=== PATIENT | male | born 1935 | race Caucasian/White ===

== ENCOUNTER 2018-11-12 13:07 | Emergency (ER) | payer MEDICARE, BC ==
[~2018-11-12] VITALS: Ht 180.3 cm; Wt 83.2 kg
[~2018-11-12 13:07] MED LIST: BENZ100A PO; LEVO750 PO; Mucinex600 MG PO; SIMV10 PO
[2018-11-12] MEDS ORDERED: Vibramycin100 MG PO (13:29)
[2018-11-12] MEDS ORDERED: Mupirocin22 GM TOP (13:29)
== END 2018-11-12 13:50 | disposition home or self-care (01) ==
LOC: ER 13:07
DX: L02.411 Cutaneous abscess of right axilla (principal); Z86.73 Personal history of transient ischemic attack (TIA), and cerebral infarction without residual deficits; Z87.891 Personal history of nicotine dependence; Z88.0 Allergy status to penicillin; Z88.5 Allergy status to narcotic agent; Z79.899 Other long term (current) drug therapy
CPT/HCPCS: 99283

== ENCOUNTER 2024-04-09 10:18 | Inpatient (IN) | payer MEDICARE, BC ==
[~2024-04-09] VITALS: Ht 175.3 cm; Wt 85.2 kg
[~2024-04-09 10:18] MED LIST changes: +ASPI325 PO; +IBUP400 PO; +Mupirocin22 GM TOP; +Vibramycin100 MG PO
[2024-04-09 10:39] LABS: BASOPHILS ABSOLUTE AUTO 0.06 K/mm3 (0.00-0.23); BASOPHILS PERCENT AUTO 0 % (0-2); EOSINOPHILS ABSOLUTE AUTO 0.04 K/mm3 (0.00-0.68); EOSINOPHILS PERCENT AUTO 0 % (0-6); Hematocrit 42.4 % (37.0-53.0); Hemoglobin 14.3 g/dL (13.5-17.5); IMMATURE GRAN ABSOLUTE AUTO 0.07 K/mm3 (0.00-0.10); IMMATURE GRAN PERCENT AUTO 0 % (0-1); LYMPHOCYTES ABSOLUTE AUTO 0.64 K/mm3 (0.84-5.20); LYMPHOCYTES PERCENT AUTO 4 % (21-46); MONOCYTES ABSOLUTE AUTO 0.47 K/mm3 (0.16-1.47); MONOCYTES PERCENT AUTO 3 % (4-13); Mean Corpuscular HGB 32.6 pg (26.0-34.0); Mean Corpuscular HGB Conc 33.7 g/dL (31.5-36.5); Mean Corpuscular Volume 97 fL (80-100); Mean Platelet Volume 8.5 fL (9.1-12.4); NEUTROPHILS ABSOLUTE AUTO 15.33 K/mm3 (1.96-9.15); NEUTROPHILS PERCENT AUTO 92 % (41-73); Platelet Count 246 K/mm3 (150-400); RDW Coefficient Variation 13.8 % (11.7-14.2); RDW Standard Deviation 49.3 fL (35.1-46.3); Red Blood Cell Count 4.39 M/mm3 (4.30-5.90); White Blood Cell Count 16.61 K/mm3 (4.00-11.30)
[2024-04-09 10:50] LABS: Source, Urine Straight Cath
[2024-04-09] MEDS ORDERED: Acetaminophen 650 MG Supp PR ONE (10:50)
[2024-04-09 10:53] LABS: Appearance, Urine Clear (Clear); Bilirubin, Urine Neg (Neg); Blood, Urine 1+ (Neg); Color, Urine Yellow (P-Yellow); Glucose Qualitative, Urine Neg (Neg); Ketones, Urine Neg (Neg); Leukocyte Esterase, Urine Neg (Neg); Nitrite, Urine Neg (Neg); Protein, Urine 2+ (Neg); Urobilinogen, Urine 1+ (Normal)
[2024-04-09 10:59] LABS: Bacteria Rare /hpf; Renal Epithelial Rare /hpf (0-Rare); Squamous Epithelial Cells Rare /hpf (Few); White Blood Cells, Urine 0-2 /hpf (0-5)
[2024-04-09] MEDS ORDERED: Vancomycin HCL 1,750 MG in NS 500 ML IV ONE (11:00)
[2024-04-09 11:04] LABS: Alanine Aminotransfer (ALT/SGP 15 U/L (12-78); Albumin/Globulin Ratio 0.6 (0.8-1.8); Alk Phos 102 U/L (50-136); Anion Gap 10 mmol/L (3-11); Aspartate Aminotrans (AST/SGOT 27 U/L (12-37); Bilirubin, Direct 0.3 mg/dL (0.0-0.3); Bilirubin, Indirect 0.7 mg/dL (0.1-0.7); Blood Urea Nitrogen 13 mg/dL (8-24); Bun/Creatinine Ratio 15.6 (12.0-20.0); CO2, Blood 28 mmol/L (21-32); Calcium, Blood 9.1 mg/dL (8.5-10.1); Chloride, Blood 100 mmol/L (98-108); Creatinine, Blood 0.83 mg/dL (0.60-1.20); Ethanol (Alcohol), Blood, Med <3 mg/dL; Globulin, Blood 4.8 g/dL (2.2-4.0); Glomerular Filtration Rate 84 (60-); Glucose, Blood 132 mg/dL (70-99); Potassium, Blood 4.8 mmol/L (3.5-5.5); Sodium, Blood 133 mmol/L (136-145); Total Protein, Blood 7.8 g/dL (6.4-8.2)
[2024-04-09] MEDS ORDERED: Lactated Ringer's 1,000 ML IV ONE ×2 (11:05→13:45)
[2024-04-09 11:07] LABS: International Normalized Ratio 1.02; Magnesium, Blood 1.8 mg/dL (1.6-2.4); Phosphorus, Blood 2.7 mg/dL (2.5-4.9); Prothrombin Time Results 10.9 Sec (9.7-11.5)
[2024-04-09 11:08] LABS: U Amphetamine Screen Not Detected; U Barbituate Screen Not Detected; U Benzodiazapine Screen Not Detected; U Buprenorphine Screen Not Detected; U Cannabinoids Screen Not Detected; U Cocaine Screen Not Detected; U Methadone Screen Not Detected; U Methamphetamine Screen Not Detected; U Opiates Screen Not Detected; U Oxycodone Screen Not Detected; U Phencyclidine Screen Not Detected
[2024-04-09 11:18] LABS: CORONAVIRUS COVID-19 AG Negative (NEGATIVE); INFLUENZA A AG Negative (NEGATIVE); INFLUENZA B AG Negative (NEGATIVE)
[2024-04-09] MEDS ORDERED: Thiamine HCl 100 MG in NS 50 ML IV ONE (13:45)
[2024-04-09] MEDS ORDERED: Metoprolol Tartrate 1 MG/ML 5 ML VIAL IV ONE (13:45)
[2024-04-09] MEDS ORDERED: Polyethylene Glycol 3350 17 gm PO PRN (14:25)
[2024-04-09] MEDS ORDERED: FLU VACC TS2024-25(6MOS UP)/PF 45 MCG/0.5 ML SYRINGE IM SCH (14:30)
[2024-04-09] MEDS ORDERED: NS 1,000 ML IV SCH (14:30)
[2024-04-09] MEDS ORDERED: CeFAZolin Sodium 2,000 MG in NS 100 ML IV SCH (15:00)
[2024-04-09] MEDS ORDERED: Heparin Sodium 5000 Units/ML 1ML MDV IV ONE (15:00)
[2024-04-09] MEDS ORDERED: Heparin Sodium,Porcine/0.5 NS 500 ML IV SCH (15:00)
[2024-04-09] MEDS ORDERED: Aspirin 81 MG Chew PO SCH (15:00)
[2024-04-09 16:42] VITALS: BP 121/91
--- NOTE | 2024-04-09 17:21 | NUR ---
PCU ADMIT / END OF SHIFT PT BROUGHT TO PCU-03 BY KIRILL FROM ER @ APPROX 1630. PT OPENS EYES TO VERBAL STIMULI W/ TOUCH. PT L EYE NOTEABLY SWOLLEN W/ YELLOW DISCHARGE. PT W/ VARIOUS SCATTERED BRUISES. PT INCONTINENT W/ SATURATED ATTENDS. SCROTUM & PENIS RED & SWOLLEN. PT ALSO INCONTINENT OF STOOL W/ SMALL PASTY BM STICKING OUT OF RECTUM. ROSIE CARE PERFORMED. PRESSURE SORE NOTED TO BUTTOCKS. WOUND PHOTOS TAKEN & PLACED IN CHART. BLE W/ SCABS. RLE MORE SWOLLEN & RED THAN LLE. WOUND PHOTOS PRINTED & PLACED IN CHART. PT ABLE TO STATE OWN NAME & . PT UNABLE TO ANSWER ANY OTHER ASSESSMENT Qs. VSS. SPO2 > 92% ON 4L NC VIA MOUTH D/T PT MOUTH BREATHING. MONITOR SHOWING ST, HR 110s. TEMP ELEVATED @ 100.1. PT SLEEPING AFTER CARE PROVIDED. HEPARIN GTT INFUSING PER ORDERS UPON ARRIVAL TO UNIT. PHARMACY NOTIFIED OF HEPARIN BOLUS NOT GIVEN. PHARMACY INSTRUCTING TO GIVE HEPARIN BOLUS. HEPARIN BOLUS GIVEN PER ORDERS. NS GTT NOW INFUSING PER ORDERS. HOLDING PO MEDICATIONS AT THIS TIME D/T PT INABILITY TO REMAIN AWAKE & FOLLOW INSTRUCTIONS. PT ALSO NPO AWAITING CARDIOLOGY CONSULT. NO FAMILY AT BEDSIDE. BED ALARM ON.
[2024-04-09] MEDS ORDERED: Metoprolol Tartrate 25 MG Tab PO SCH (18:00)
--- NOTE | 2024-04-09 18:10 | NUR ---
UPDATE MD MANRIQUE NOTIFIED OF CRITICAL TROPONIN. PT NPO AWAITING CARDIOLOGY CONSULT. MD MANRIQUE ALSO NOTIFIED OF PRESSURE SORE TO BUTTOCKS. NO NEW ORDERS.
[2024-04-09] MEDS ORDERED: Aspirin 300 MG Supp PR SCH (20:00)
[2024-04-09 20:54] VITALS: BP 117/83
[2024-04-09] MEDS ORDERED: Atorvastatin 40 MG Tab PO SCH (21:00)
[2024-04-09] MEDS ORDERED: Lactobacil 2-S.Thermo-Bifido 1 1 Cap PO SCH (21:00)
[2024-04-09 22:28] LABS: Adenovirus Not Detected (NOT DETECT); Bordetella pertussis Not Detected (NOT DETECT); Chlamydophila pneumoniae Not Detected (NOT DETECT); Coronavirus 229E Not Detected (NOT DETECT); Coronavirus HKU1 Not Detected (NOT DETECT); Coronavirus NL63 Not Detected (NOT DETECT); Coronavirus OC43 Not Detected (NOT DETECT); Human Metapneumovirus Not Detected (NOT DETECT); Human Rhinovirus/Enterovirus Not Detected (NOT DETECT); Influenza A/2009-H1 Not Detected (NOT DETECT); Influenza A/H1 Not Detected (NOT DETECT); Influenza A/H3 Not Detected (NOT DETECT); Influenza B Not Detected (NOT DETECT); Mycoplasma pneumoniae Not Detected (NOT DETECT); Parainfluenza Virus 1 Not Detected (NOT DETECT); Parainfluenza Virus 2 Not Detected (NOT DETECT); Parainfluenza Virus 3 Not Detected (NOT DETECT); Parainfluenza Virus 4 Not Detected (NOT DETECT); Respiratory Syncytial Virus Not Detected (NOT DETECT); SARS-Cov-2 (COVID-19), BioFire Not Detected (NOT DETECT)
[2024-04-09 22:29] LABS: Anti-Xa UFH, PHA Monitoring 0.41 IU/mL
[2024-04-10] VITALS (8 sets, daily range): BP systolic 97–145; BP diastolic 57–77
[2024-04-10] MEDS ORDERED: Metoprolol Tartrate 1 MG/ML 5 ML VIAL IV SCH
[2024-04-10] MEDS ORDERED: Dose Adjust by Pharmacy XX STA ×3 (00:12→21:04)
[2024-04-10 04:16] LABS: Hematocrit 37.5 % (37.0-53.0); Hemoglobin 12.5 g/dL (13.5-17.5); Mean Corpuscular HGB 32.1 pg (26.0-34.0); Mean Corpuscular HGB Conc 33.3 g/dL (31.5-36.5); Mean Corpuscular Volume 96 fL (80-100); Mean Platelet Volume 8.7 fL (9.1-12.4); Platelet Count 194 K/mm3 (150-400); RDW Coefficient Variation 14.3 % (11.7-14.2); White Blood Cell Count 26.38 K/mm3 (4.00-11.30)
[2024-04-10 04:36] LABS: BAND PERCENT MAN 14 % (0-8); BASOPHILS ABSOLUTE MAN 0.26 K/mm3 (0.00-0.23); BASOPHILS PERCENT MAN 1 % (0-2); EOSINOPHILS PERCENT MAN 0 % (0-6); LYMPHOCYTES ABSOLUTE MAN 0.79 K/mm3 (0.84-5.20); LYMPHOCYTES PERCENT MAN 3 % (21-46); MONOCYTES ABSOLUTE MAN 0.79 K/mm3 (0.16-1.47); MONOCYTES PERCENT MAN 3 % (4-13); NEUTROPHILS ABSOLUTE MAN 24.53 K/mm3 (1.96-9.15); SEG NEUTROPHILS PERCENT MAN 79 % (41-73); TOTAL CELLS COUNTED 100
[2024-04-10 04:38] LABS: Alanine Aminotransfer (ALT/SGP 12 U/L (12-78); Albumin, Blood 2.3 g/dL (3.4-5.0); Albumin/Globulin Ratio 0.6 (0.8-1.8); Alk Phos 75 U/L (50-136); Anion Gap 10 mmol/L (3-11); Aspartate Aminotrans (AST/SGOT 45 U/L (12-37); Bilirubin, Total 0.6 mg/dL (0.1-1.0); Blood Urea Nitrogen 17 mg/dL (8-24); Bun/Creatinine Ratio 19.7 (12.0-20.0); CHOL/HDL RATIO 3.1; CO2, Blood 25 mmol/L (21-32); Calcium, Blood 8.3 mg/dL (8.5-10.1); Chloride, Blood 103 mmol/L (98-108); Cholesterol 105 mg/dL (50-200); Creatinine, Blood 0.86 mg/dL (0.60-1.20); Globulin, Blood 4.1 g/dL (2.2-4.0); Glomerular Filtration Rate 83 (60-); Glucose, Blood 102 mg/dL (70-99); HDL Cholesterol 34 mg/dL (>39); LDL/HDL RATIO 1.7; Low Density Lipoprotein Chol 58 mg/dL (0-110); Potassium, Blood 4.3 mmol/L (3.5-5.5); Sodium, Blood 134 mmol/L (136-145); Total Protein, Blood 6.4 g/dL (6.4-8.2); Triglycerides 67 mg/dL (30-160); Very Low Density Lipoprot Chol 13 mg/dL (6-32)
--- NOTE | 2024-04-10 06:28 | NUR ---
SHIFT SUMMARY A/Ox1-2 AND COOPERATIVE WITH CARE. FREQUENTLY CONFUSED AND VERY APACHE. ABLE TO BE REORIENTED AND ABLE TO MAKE HIS NEEDS KNOWN. CARDIAC, REMAINS IN SR 70-90'S WITH NO C/O CP, PRESSURE OR DIZZINESS. TRENDED TROPONINS DURING THE NIGHT, SBP HAS REMAINED STABLE. RESPIRATORY, MAINTAINS SPO2 >90% ON 5-7L HFNC WITH NO C/O SOB OR DYSPNEA. GI/, INCONTINENT OF BOTH BOWEL WELL URINE. ATTENDS IN PLACED, CHANGED PRN TO KEEP C/D/I. PW IN PLACED DRAINING ENEDELIA COLORED TO URINE. MEPILEX ON COCCYX CHANGED PRN TO KEEP C/D/I WELL. CRITICAL RECEIVED SHOWING BC GROWING GRAM POSTIVE COCCI IN CHAINS. NS CONINUES TO INFUSE PER EMAR. STEP SON FROM [place] ([facility]) REPORTS HE IS PRIMARY POINT OF CONTACT . NO NEW ORDERS AT THIS TIME, WILL REPORT TO ONCOMING RN. BARBARA, SHO OF THIS NOTE.
[2024-04-10] MEDS ORDERED: Arginine/Glutamine/Calcium Hmb 1 Packet PO SCH (09:00)
[2024-04-10] MEDS ORDERED: Vancomycin HCL 1,500 MG in NS 250 ML IV SCH (12:00)
[2024-04-10] MEDS ORDERED: Erythromycin 0.5% Opth Oint 3.5 gm LEFTEYE SCH (13:30)
--- NOTE | 2024-04-10 14:36 | NUR ---
ASSUMPTION OF CARE PT ALERT, OREINTED TO NAME/, AND ABLE TO NAME [id number] AT BEDSIDE, PT UNSURE WHERE HE IS AND WHAT BROUGHT HIM IN. WHEN ASKED THE YEAR HE ORIGINALLY SAID HE DID NOT KNOW, WHEN ASKED A FEW HOURS LATER PT ABLE TO STATE THE YEAR. HR IN THE 80'S-90'S, DENIES CP/PRESSURE, NUMB/TINGLING, SBP IN THE 90'S-110'S, DENIES DIZZY/LIGHTHEADED. O2 RANGING FROM 88-94%, PT OCASIONALLY DESATS TO THE 70'S-80'S. PT WAS ON HIGH FLOW NC THIS AM AT 9L, PT FELL ASLEEP AND DESATED, SWITCHED TO OXYMIZER AT10L WHILE SLEEPING AND O2 BACK TO THE 90'S. PT WITH PUREWICK IN PLACE, ENEDELIA URINE DRAINING. WHEN ASKED ABOUT PAIN HE DENIED ANY, PUT REPORTED PAIN IN THE LEFT LEG WHILE LIFTING IT. HE HAS REDNESS AND WARM TO TOUCH OF THE BLE. REDNESS WORSE IN THE RIGHT LEG. PT ALSO WITH REDNESS AND IRRITATION TO THE LEFT EYE, OINTMENT ORDERED. PT DENIES ANY QUESTIONS AT THIS TIME. WILL MONITOR PT.
--- NOTE | 2024-04-10 18:13 | NUR ---
SHIFT SUMMARY PT ALERT, ORIENTED TO NAME/ AND YEAR. CALM COOPERATIVE TO CARE. HR IN THE 90'S, SINUS RHYTHM, DENIES CP/PRESSURE, NUMB/TINGLING, SBP IN THE 90'S-110'S. O2 >90% ON 5-7L VIA HIGH FLOW NC, PT IS A MOUTH BREATHER WHILE ASLEEP AND DOES BETTER WITH OXYMIZER WHILE SLEEPING. L/S COARSE T/O. PUREWICK IN PLACE, ENEDELIA URINE PRESENT. HE HAS REDNESS TO THE BLE, WARM TO TOUCH, RIGHT WORSE THAN LEFT. BEDSIDE SWALLOW EVAL DONE WITH PT THIS AM, PT TOLERATED PO MEDS WITH APPLESAUCE. ST CAME TO BEDSIDE TO EVALUATE PT. PT ADVANCED TO MINCED AND MOIST DIET. PT TO TAKE PILLS/EAT SITTING UPRIGHT AT 90 DEGREES. CARDIOLOGY TO BEDSIDE TO DISCUSS PLAN OF CARE, MEDICALLY MANAGING PT. PT TO CONTINUE IV ABX. HE DENIES ANY QUESTIONS OR CONCERNS AT THIS TIME WILL MONITOR PT AND REPORT TO FRUIT LOADER RN.
[2024-04-11 03:18] LABS: BASOPHILS ABSOLUTE AUTO 0.07 K/mm3 (0.00-0.23); BASOPHILS PERCENT AUTO 1 % (0-2); EOSINOPHILS ABSOLUTE AUTO 0.17 K/mm3 (0.00-0.68); EOSINOPHILS PERCENT AUTO 1 % (0-6); Hematocrit 35.2 % (37.0-53.0); Hemoglobin 11.8 g/dL (13.5-17.5); IMMATURE GRAN ABSOLUTE AUTO 0.06 K/mm3 (0.00-0.10); IMMATURE GRAN PERCENT AUTO 0 % (0-1); LYMPHOCYTES ABSOLUTE AUTO 0.91 K/mm3 (0.84-5.20); LYMPHOCYTES PERCENT AUTO 7 % (21-46); MONOCYTES ABSOLUTE AUTO 0.98 K/mm3 (0.16-1.47); MONOCYTES PERCENT AUTO 7 % (4-13); Mean Corpuscular HGB 32.4 pg (26.0-34.0); Mean Corpuscular HGB Conc 33.5 g/dL (31.5-36.5); Mean Corpuscular Volume 97 fL (80-100); Mean Platelet Volume 8.9 fL (9.1-12.4); NEUTROPHILS ABSOLUTE AUTO 11.45 K/mm3 (1.96-9.15); NEUTROPHILS PERCENT AUTO 84 % (41-73); Platelet Count 180 K/mm3 (150-400); RDW Coefficient Variation 14.4 % (11.7-14.2); RDW Standard Deviation 51.4 fL (35.1-46.3); Red Blood Cell Count 3.64 M/mm3 (4.30-5.90); White Blood Cell Count 13.64 K/mm3 (4.00-11.30)
[2024-04-11 04:17] VITALS: BP 110/68
--- NOTE | 2024-04-11 04:29 | NUR ---
SHIFT SUMMARY PATIENT HAD NO ACUTE CHANGES. AXOX 2 AND BEDREST. ON 6L O2 HIGH FLOW OR OXYMIZER MASK AT NIGHT. PIV INTACT. IV ABX INFUSED. HEPARIN INFUSING @ 33.1 mL/HR MANAGED BY PHARMACY. TELE MONITOR NSR 88 WITH PAC, PVC, 1ST DEGREE, AND BBB. PUREWICK IN PLACE. SBP'S 100-120'S. DENIES CHEST PAIN, SOB, AND N/V. TAKES MEDS WHOLE WITH APPLE SAUCE. SLEPT ON/OFF. CALL LIGHT IN REACH. BED IN LOWEST POSITION. WILL CONTINUE TO MONITOR UNTIL DAY SHIFT NURSE ASSUMES CARE.
[2024-04-11 07:37] VITALS: BP 107/63
[2024-04-11] MEDS ORDERED: Dose Adjust by Pharmacy XX STA ×2 (11:04→16:47)
[2024-04-11 12:34] VITALS: BP 126/82
[2024-04-11] MEDS ORDERED: Metoprolol Succinate 25 MG TABCR PO SCH (16:00)
[2024-04-11 16:38] VITALS: BP 120/83
--- NOTE | 2024-04-11 17:41 | NUR ---
SHIFT SUMMARY PT ALERT, ORIETNED TO NAME/, PLACE, AND YEAR. PT SLEEPY THIS AM BUT WOKE UP AND WAS ALERT AND ORIENTED. MENTATION IMPROVED TODAY. SINUS RHYTHM, HR IN THE 70'S. PT DENIES CP/PRESSURE, NUMB/TINGLING. SBP IN THE 100'S. O2 >92%, RECIEVING 5-7L VIA NC, DENIES SOB AT THIS TIME. PT OCASIONALLY DESATS TO THE 80'S, RECOVERS WITH DEEP BREATHING. PUREWICK IN PLACE. PT WITH SMALL SMEAR IN BREIF THIS AM. HE HAS A PRESSURE SORE ON THE BOTTOCKS, PRESENT SINCE ADMISSION, MEPILEX IN PLACE AND CHANGED THIS SHIFT. HE HES REDNESS/WARM TO TOUCH OF LOWER EXTREMETIES, REDNESS OUTLINED WITH MARKER. VENOUS DUPLEX OF BILAT BLE'S COMPLETED THIS AFTERNOON. PT TOLERATING PO INTAKE/MEDICATIONS. FAMILY AT BEDSIDE WITH PT. HE DENIES ANY QUESTIONS/CONCERNS AT THIS TIME. WILL MONITOR AND REPORT TO SLUG PRESS OPERATOR RN.
[2024-04-11 19:21] VITALS: BP 134/91
--- NOTE | 2024-04-11 19:25 | NUR ---
ASSESSMENT/ASSUMED CARE PT SITTING UP IN BED WATCHING TV. DENIES PAIN OR DISCOMFORT. A&O, FOLLOWING INSTRUCTIONS. NINILCHIK. LUNGS CLEAR BUT DECREASED ON 4 LITERS VIA NC. RESP EVEN AND NONLABORED. DENIES SOB OR COUGH. HEART RATE REGULAR SINUS RHYTHM 70'S WITH PAC'S. DENIES CHEST PAIN OR PRESSURE. EDEMA TO BILAT LOWER EXT WITH RIGHT LARGER THAN LEFT. CELLULITITIS NOTED TO BILAT LOWER EXT. NOT PASSED MARKED LINES. ELEVATED LOWER EXT ON TWO PILLOWS. BT+ ABD SOFT AND NONTENDER. DENIES N/V. TAKING FLUIDS WITHOUT DIFFICULTY. IV LEFT FOREARM WITH HEPARIN AT 23 UNITS/KG/HR. SITE CLEAR. IV TO RIGHT AC SALINE LOCKED. SITE CLEAR. PUREWICK INTACT, PT VOIDING CLEAR YELLOW URINE. DRSG TO COCCYX INTACT. ATTENDS CD&I. REPOSITIONED. CALL LIGHT WITHIN REACH
[2024-04-11] MEDS ORDERED: Clarify Drug Order XX ONE (23:40)
[2024-04-11 23:49] VITALS: BP 128/77
[2024-04-12 04:21] LABS: Hematocrit 35.9 % (37.0-53.0); Mean Corpuscular HGB 32.4 pg (26.0-34.0); Mean Corpuscular HGB Conc 33.4 g/dL (31.5-36.5); Mean Corpuscular Volume 97 fL (80-100); Mean Platelet Volume 9.2 fL (9.1-12.4); Platelet Count 203 K/mm3 (150-400); RDW Coefficient Variation 14.4 % (11.7-14.2); RDW Standard Deviation 51.4 fL (35.1-46.3); White Blood Cell Count 10.51 K/mm3 (4.00-11.30)
[2024-04-12 04:39] VITALS: BP 100/65
--- NOTE | 2024-04-12 04:48 | NUR ---
PT HAD 2.72 SEC PAUSE, SEE RHYTHM STRIP. VSS. WATCHING TV. DENIES PAIN OR DISCOMFORT
[2024-04-12 05:05] LABS: Bun/Creatinine Ratio 36.4 (12.0-20.0); Calcium, Blood 8.2 mg/dL (8.5-10.1); Creatinine, Blood 0.77 mg/dL (0.60-1.20); Potassium, Blood 4.3 mmol/L (3.5-5.5)
--- NOTE | 2024-04-12 05:58 | NUR ---
SHIFT SUMMARY RESTING QUIETLY AT THIS TIME. PT AWAKE MOST OF NIGHT WATCHING TV AND TALKING WITH STAFF. TURNED Q2HR SIDE TO SIDE TO KEEP OFF COCCYX WOUND. DRSG TO BOTTOM CHANGED TWICE DURING THE NIGHT AND PT TOLERATED WELL. PT HAS BEEN ON 4 LITERS HIFLOW NC THROUGHOUT THE NIGHT. DENIES SOB OR COUGH. PT HAD 2.72 SEC PAUSE WITH HEART RATE DURING THE NIGHT. NO CHEST PAIN OR PRESSURE. REPORT TO ON COMING NURSE
[2024-04-12] MEDS ORDERED: Clarify Drug Order XX ONE (06:30)
--- NOTE | 2024-04-12 07:45 | NUR ---
AM NOTE: PATIENT ALERT AND ORIENTED. FORGETFUL. POOR HISTORIAN. VERY TALKATIVE AND HAPPY. MOVING ALL EXTREMITIES. OVERALL WEAK. PATIENT REPORTS USING WALKER AT BASELINE. PT/OT ORDERS IN PLACE. PATIENT ASSISTING STAFF WITH TURNS. Q2 TURNING AND NEEDED. PERRLA WITH LEFT EYELID DROOPING, RED, CRUSTY AND SLIGHTLY SWOLLEN. EYE OINTMENT APPLIED PER EMAR. TELE SHOWING SR WITH PVC'S. HR 70'S. SBP 120'S. DENIES CHEST PAIN/PALPITATIONS/PRESSURE. EDEMA NOTED TO BLE, WORSE IN RIGHT. HEPARIN GTT INFUSING PER EMAR. ON 4-6L HIGH FLOW NASAL CANNULA SATING MID 90'S. LUNG SOUNDS DIMINISHED. EVEN AND UNLABORED RESPIRTATIONS. OCCASIONAL DRY COUGH. PLAN FOR CT PE STUDY THIS AFTERNOON. DENIES SOB. BOWEL TONES PRESENT. SPEECH THERAPY IN TO WORK WITH PATIENT. ADVANCED DIET. ATTENDS IN PLACE WELL PUREWICK. PATIENT HAD MODERATE INCONTINENT BOWEL MOVEMENT THIS MORNING. DENIES ABDOMINAL PAIN/NAUSEA. DENTURES IN PLACE. SKIN OVERALL FRAGILE, PALE, BRUISED AND DRY. PRESSURE WOUND TO COCCYX. DRESSING CHANGED THIS AM. BLE/TOES SCABBING. BLE RED, SWOLLEN AND WARM. WORSE IN RIGHT. SKIN OUTLINED WITH MARKER. PATIENT REPORTS REDNESS IMPROVING. BLE ELEVATED WHEN IN BED. CALL LIGHT IN REACH. PATIENT DENIES NEEDS AT THIS TIME.
[2024-04-12 08:35] VITALS: BP 127/82
[2024-04-12 12:05] VITALS: BP 123/84
--- NOTE | 2024-04-12 13:01 | NUR ---
PATIENT TO CT PE STUDY. SON TARIQ AT BEDSIDE. DR. LIPSCOMB IN TO UPDATE SON. SON DISCUSSES PATIENT NEEDING PLACEMENT UPON DISCHARGE. CASE MANAGEMENT INVOLVED. AFTERNOON VITALS STABLE. SINUS RHYTHM WITH HR 70'S. CONTINUES TO WEAR 4-6L HIGH FLOW DEPENDING ON ACTIVITY. Q2 TURNING. CULTURE SENT OF COCCYX WOUND, PURULENT DRAINAGE. PICTURE UPDATED IN CHART. PATIENT WITH MULTIPLE BOWEL MOVEMENTS. PT/OT IN TO WORK WITH PATIENT THIS AFTERNOON. PATIENT EATING LUNCH AT THIS TIME. SON REMAINS AT BEDSIDE.
[2024-04-12 15:35] VITALS: BP 123/78
--- NOTE | 2024-04-12 18:19 | NUR ---
SHIFT SUMMARY: NO ACUTE CHANGES. SEE PREVIOUS NOTES. PATIENT REMAINS ALERT AND ORIENTED. Q2 TURNING AND NEEDED. DENIES PAIN THROUGHOUT SHIFT. HEPARIN GTT CONTINUES TO INFUSE. ON 6L HIGH FLOW NASAL CANNULA. TELE READING SR WITH HR 60-70'S. IV ABX INFUSED. MULTIPLE BOWEL MOVEMENTS. PUREWICK IN PLACE. CALL LIGHT IN REACH. PATIENT EATING DINNER AT THIS TIME.
[2024-04-12 21:11] VITALS: BP 120/62
[2024-04-13 00:12] VITALS: BP 135/83
--- NOTE | 2024-04-13 03:47 | NUR ---
SHIFT SUMMARY- NO ACUTE EVENTS NEURO: A/OX4. EQUAL STRENGTH. PERRLA LUNGS: HFNC 6L. DIMINISHED BASES. CARDIAC: INTERMITENT BRADYCARDIA AND PAUSES UP TO 2 SECONDS. BLE EDEMA, RIGHT GREATER THAN LEFT. GI/: WICKING DEVICE IN PLACE, BM THIS SHIFT.
[2024-04-13 04:09] VITALS: BP 116/66
[2024-04-13 04:27] LABS: BASOPHILS ABSOLUTE AUTO 0.07 K/mm3 (0.00-0.23); BASOPHILS PERCENT AUTO 1 % (0-2); EOSINOPHILS ABSOLUTE AUTO 0.32 K/mm3 (0.00-0.68); EOSINOPHILS PERCENT AUTO 4 % (0-6); Hematocrit 36.7 % (37.0-53.0); Hemoglobin 12.2 g/dL (13.5-17.5); IMMATURE GRAN ABSOLUTE AUTO 0.07 K/mm3 (0.00-0.10); IMMATURE GRAN PERCENT AUTO 1 % (0-1); LYMPHOCYTES ABSOLUTE AUTO 1.22 K/mm3 (0.84-5.20); LYMPHOCYTES PERCENT AUTO 15 % (21-46); MONOCYTES ABSOLUTE AUTO 0.75 K/mm3 (0.16-1.47); MONOCYTES PERCENT AUTO 9 % (4-13); Mean Corpuscular HGB 32.1 pg (26.0-34.0); Mean Corpuscular HGB Conc 33.2 g/dL (31.5-36.5); Mean Corpuscular Volume 97 fL (80-100); Mean Platelet Volume 9.7 fL (9.1-12.4); NEUTROPHILS ABSOLUTE AUTO 5.77 K/mm3 (1.96-9.15); NEUTROPHILS PERCENT AUTO 70 % (41-73); Platelet Count 226 K/mm3 (150-400); RDW Coefficient Variation 14.2 % (11.7-14.2); RDW Standard Deviation 50.6 fL (35.1-46.3)
[2024-04-13] MEDS ORDERED: Clarify Drug Order XX ONE (06:35)
[2024-04-13 07:35] VITALS: BP 132/79
[2024-04-13] MEDS ORDERED: Apixaban 5 MG Tab PO SCH (09:09)
[2024-04-13 16:17] VITALS: BP 116/83
--- NOTE | 2024-04-13 17:19 | NUR ---
SHIFT SUMMARY PT AOX3, SOME CONFUSION AT TIMES. PLEASANT AND COOPERATIVE WITH CARE. REPOSITIONED Q 2 THROUGHOUT THE SHIFT. PURWICK IN PLACE AND PATENT. MEPALEX APPLIED TO COCCYX. 2 BM'S THIS SHIFT. NO COMPLAINTS BY THE PT. NO ACUTE CHANGES. PT IS NOW MED/TELE STATUS. FAMILY AT THE BS TODAY. HEPARIN DRIP DC'D AND ELIQUIS ADMINSITERED PER THE EMAR. CALL LIGHT WITHIN REACH, BED LOCKED AND IN THE LOWEST POSITION. WILL REPORT TO ONCOMING NURSE.
[2024-04-13 20:20] VITALS: BP 124/75
[2024-04-14] VITALS: BP 132/87
[2024-04-14 04:15] VITALS: BP 110/64
--- NOTE | 2024-04-14 04:44 | NUR ---
SHIFT SUMMARY- NO ACUTE EVENTS NEURO: A/OX4. EQUAL STRENGTH. PERRLA LUNGS: NC 1L. DIMINISHED BASES. SHORT EPISODES OF SLEEP APNEA. CARDIAC: BUNDLE BRANCH BLOCK. BLE EDEMA, RIGHT GREATER THAN LEFT. GI/: WICKING DEVICE IN PLACE, BM THIS SHIFT. LEFT ISCHIUM DRESSING CHANGED
[2024-04-14 04:53] LABS: BASOPHILS ABSOLUTE AUTO 0.08 K/mm3 (0.00-0.23); BASOPHILS PERCENT AUTO 1 % (0-2); EOSINOPHILS ABSOLUTE AUTO 0.42 K/mm3 (0.00-0.68); EOSINOPHILS PERCENT AUTO 4 % (0-6); Hematocrit 37.3 % (37.0-53.0); Hemoglobin 12.4 g/dL (13.5-17.5); IMMATURE GRAN ABSOLUTE AUTO 0.12 K/mm3 (0.00-0.10); IMMATURE GRAN PERCENT AUTO 1 % (0-1); LYMPHOCYTES ABSOLUTE AUTO 1.07 K/mm3 (0.84-5.20); LYMPHOCYTES PERCENT AUTO 11 % (21-46); MONOCYTES ABSOLUTE AUTO 0.86 K/mm3 (0.16-1.47); MONOCYTES PERCENT AUTO 9 % (4-13); Mean Corpuscular HGB Conc 33.2 g/dL (31.5-36.5); Mean Corpuscular Volume 96 fL (80-100); Mean Platelet Volume 9.4 fL (9.1-12.4); NEUTROPHILS ABSOLUTE AUTO 7.02 K/mm3 (1.96-9.15); NEUTROPHILS PERCENT AUTO 73 % (41-73); Platelet Count 256 K/mm3 (150-400); RDW Coefficient Variation 14.4 % (11.7-14.2); RDW Standard Deviation 50.8 fL (35.1-46.3); Red Blood Cell Count 3.87 M/mm3 (4.30-5.90); White Blood Cell Count 9.57 K/mm3 (4.00-11.30)
[2024-04-14 07:25] VITALS: BP 135/78
[2024-04-14 10:26] VITALS: BP 119/73
[2024-04-14 15:51] VITALS: BP 122/75
--- NOTE | 2024-04-14 17:47 | NUR ---
SHIFT SUMMARY THE PT IS VERY PLEASENT AND A&OX3-4. HE CAN BE FOREGETFUL AND IS VERY [place]. THE PT DOES NOT ALWAYS FOLLOW CONVERSATION LIKELY D/T HEARING DEFICIT. THE PTHAS BEEN ON RA T/O THE SHIFT AND DENIES ANY SOB. THE PT IS ON TELE AND IS SITTING SR 60'S-70'S. BP REMAINS STABLE. HE IS TOLERATING PO INTAKE WELL. MALE WICKING SYSTEM IN PLACE AND DRAINING TO SUCTION, GOOD YELLOW OUTPUT. NO ACUTE EVENTS THIS SHIFT. THE PT WILL BE NPO BESIDES WATER AT 0000. STRESS TEST PLANNED FOR 04/15. NO ACUTE EVENTS, SEE NOTES FOR UPDATES.
[2024-04-14] MEDS ORDERED: Miconazole Nitrate 2% 85 GM PWD TOP SCH (21:00)
[2024-04-14 21:44] VITALS: BP 152/89
[2024-04-15 01:10] VITALS: BP 132/78
[2024-04-15 04:31] VITALS: BP 160/89
[2024-04-15 07:29] VITALS: BP 140/98
[2024-04-15 09:56] VITALS: BP 137/100
[2024-04-15] MEDS ORDERED: Aminophylline 250MG / 10ML 10 ML Vial ONE (13:49)
[2024-04-15] MEDS ORDERED: Regadenoson 0.4 MG/5 ML SYRINGE ONE (13:49)
[2024-04-15 17:52] VITALS: BP 151/92
--- NOTE | 2024-04-15 18:20 | NUR ---
SHIFT SUMMARY PT ALERT, ORIENTED BUT CAN BE FORGETFUL. SP02>90% ON RA. DENIES SOB. TELEMETRY SHOWS NSR W/ 1ST DEGREE. PT NPO THIS AM FOR 1ST PORTION OF STRESS TEST, DONE T/O THE DAY. NPO AT MIDNIGHT FOR SECOND PORTION. PURWIK TO SUCTION. INCONTINENT OF STOOL, BM X3 THIS SHIFT. C/D ATTENDS IN PLACE. DENIES PAIN. Q2H REPOSITIONING. FEEDER, HAS DIFFICULTY WITH DEXTERITY/EATING. MEDS W/ APPLESAUCE/PUDDING. PT RESTING IN ROOM. CALL LIGHT IN REACH.
[2024-04-15 20:16] VITALS: BP 133/85
[2024-04-16 04:56] VITALS: BP 133/76
--- NOTE | 2024-04-16 06:45 | NUR ---
NOC SHIFT SUMMARY RAYMUNDO WAS ORIENTED X3-4 OVERNIGHT, VSS, ON RA. FORGETFUL AT TIMES, IMPULSIVE BUT COOPERATIVE. ABLE TO MAKE NEEDS KNOWN. WICKING SYSTEM IN PLACE, REDNESS TO SCROTUM WITH NYSTATIN POWDER APPLIED. Q2H REPOSITIONING. COCCYX WITH MEPILEX IN PLACE. BM X1. NO ACUTE CHANGES OVERNIGHT. NPO @0000
[2024-04-16 09:01] VITALS: BP 146/105
[2024-04-16] MEDS ORDERED: CefTRIAXone Sodium 1,000 MG in NS 100 ML IV SCH (09:30)
[2024-04-16] MEDS ORDERED: JUVEN PACKET1 EAC3 PO (10:05)
[2024-04-16] MEDS ORDERED: ELIQUIS5 M2 PO (10:05)
[2024-04-16] MEDS ORDERED: LIPITOR80 MG PO (10:06)
[2024-04-16] MEDS ORDERED: METO25ER PO (10:06)
[2024-04-16] MEDS ORDERED: ERYT.5TO LEFTEYE (10:06)
[2024-04-16] MEDS ORDERED: PROBIOTIC1 EA13 PO (10:07)
[2024-04-16] MEDS ORDERED: MIRALAX17 GM PO (10:07)
[2024-04-16] MEDS ORDERED: MICONAZOLE NITR85 GM TOP (10:07)
[2024-04-16] MEDS ORDERED: CEFTRIAXON1 GM/50 M1 IV (10:10)
--- NOTE | 2024-04-16 12:09 | NUR ---
DISCHARGE SUMMARY @ APPROX 1130 A&O X4, OBEYS COMMANDS, ABLE TO MAKE NEEDS KNOWN, HARD OF HEARING, AMBULATING 1 PERSON WITH FWW AND GAIT BELT. CONTINUOUS SPO2, SPO2 GREATER THAN 90% ON RA, LUNGS SOUND CLEAR T/O WITH DIMINISHED BASES. CONTINUOUS TELE MONITORING, HR 90 S, SINUS RHYTHM WITH 1 DEGREE HEART BLOCK, PT DENIES CHEST P/P T/O THIS SHIFT, PULSES PRESENT T/O. MALE PURE WICK IN PLACE CONNECTED TO LOW CONTINUOUS SUCTION. PT DENIES PAIN. BLE RENDESS THAT IS WITHIN THE DRAWN MARKINGS, HAS SOME SCABS ON BLE SHINS, REDNESS ON COCCYX AND ROSIE AREA, LEFT EYE HAS SOME REDNESS. IV LEFT IN PLACE FOR IV ABX TREATMENT, DRESSING REPLACED THIS SHIFT. PT ASSISTED TO GET DRESSED. PT LEFT VIA WHEEL CHAIR AND MEDICAL TRANSPORT @ APPROX 1130. REPORT GIVEN TO TERESA MELCHOR @ ARRPOX 1150.
== END 2024-04-16 12:08 | DRG 871 ==
LOC: ER 10:18 → PCU 14:22
PROVIDERS: Student in an Organized Health Care Education/Training Program; ADMIT Internal Medicine
DX: A40.9 Streptococcal sepsis, unspecified (principal); G93.41 Metabolic encephalopathy; J96.01 Acute respiratory failure with hypoxia; I21.A1 Myocardial infarction type 2; L03.115 Cellulitis of right lower limb; E87.1 Hypo-osmolality and hyponatremia; M80.88XA Other osteoporosis with current pathological fracture, vertebra(e), initial encounter for fracture; I82.412 Acute embolism and thrombosis of left femoral vein; L03.116 Cellulitis of left lower limb; R65.20 Severe sepsis without septic shock; I48.91 Unspecified atrial fibrillation; Z87.891 Personal history of nicotine dependence; M19.079 Primary osteoarthritis, unspecified ankle and foot; Z79.82 Long term (current) use of aspirin; Z79.899 Other long term (current) drug therapy; E78.5 Hyperlipidemia, unspecified; Z98.1 Arthrodesis status; Z98.890 Other specified postprocedural states; Z88.0 Allergy status to penicillin; Z88.5 Allergy status to narcotic agent
CPT/HCPCS: 0202U; 36415; 70450; 71045; 71260; 71275; 73620; 74174; 78452; 80048; 80053; 80061; 80320; 81001; 82140; 82248; 82550; 82607; 82746; 83605; 83735; 83880; 84100; 84145; 84443; 84484; 85025; 85027; 85520; 85610; 85730; 87040; 87070; 87075; 87077; 87147; 87186; 87205; 87428-QW; 92526; 92610; 93005; 93010; 93017; 93306; 93970; 94760; 96361; 96365-59; 97110; 97162; 97165; 97530; 99285-25; A9270; A9500; J0280; J0690; J0696; J1644; J2785; J3370; J3411; J7030; J7040; J7050; J7120; Q9967